=== PATIENT | female | born 1980 | race Caucasian/White ===

== ENCOUNTER → 2016-08-15 | Outpatient (CLI) | payer OTHER ==
[~2016-08-15] MED LIST: ACYC400T PO
--- NOTE | 2016-08-16 16:42 | EKG ---
Date Performed: 08/15/2016 Time Performed: 15:01:26 PTAGE: 35 years EKG: Sinus rhythm NORMAL ECG NO PREVIOUS TRACING DOCTOR: Johnny Bethea Interpretating Date/Time 08/16/2016 16:40:58
== END ==
LOC: HCAV 14:25
DX: R42 Dizziness and giddiness (principal)
CPT/HCPCS: 93005